=== PATIENT | female | born 1960 | race African-American/Black ===

== ENCOUNTER 2018-03-08 07:16 | Observation (INO) | payer MEDICARE, MEDICAID ==
[~2018-03-08] VITALS: Ht 180.3 cm; Wt 72.3 kg
[2018-03-08] MEDS ORDERED: MORPHINE SULFATE 4 MG/ML CPJ (NOT FOR IM USE) IV STA (07:36)
[2018-03-08] MEDS ORDERED: ASPIRIN 81MG TABLET PO STA (07:36)
[2018-03-08] MEDS ORDERED: ONDANSETRON HCL 4MG/2ML VIAL IV STA (07:36)
[2018-03-08 07:51] LABS: BASOPHILS % 0.4 % (0.0-2.0); EOSINOPHILS % 1.1 % (0.0-5.0); HEMATOCRIT. 35.9 % (36.0-48.0); HEMOGLOBIN. 12.6 g/dL (12.0-16.0); LYMPHOCYTES % 21.8 % (20.0-50.0); MEAN CORPUSCULAR HEMOGLOBIN 31.6 pg (28.0-32.0); MEAN CORPUSCULAR VOLUME 90.3 fL (81.0-99.0); MEAN PLATELET VOLUME 7.3 fl (7.4-10.4); MONOCYTES % 5.4 % (2.0-8.0); NEUTROPHILS % 71.3 % (40.0-76.0); PLATELET 254 x1000/uL (130-400); RED BLOOD CELL COUNT 3.98 mill/uL (4.2-5.4); RED CELL DISTRIBUTION WIDTH 14.5 % (11.6-14.6)
[2018-03-08 07:57] LABS: CHLORIDE 109 mEq/L (98-107)
[2018-03-08 08:01] LABS: D-DIMER 0.19 mg/L FEU (<0.50); PARTIAL THROMBOPLASTIN TIME 26.6 sec (23.4-31.0)
[2018-03-08] MEDS: NITROGLYCERIN 0.4MG TABLET SL SL PRN ×3 (08:06→08:49)
[2018-03-08] MEDS ORDERED: CLONIDINE 0.2MG TABLET PO ONE (09:45)
[2018-03-08] MEDS ORDERED: HYDROCODONE/ACETAMINOPHEN 5/325MG TABLET PO ONE (09:45)
[2018-03-08] MEDS ORDERED: GUAIFENESIN 200MG/10ML SUGAR FREE UDC PO PRN (11:00)
[2018-03-08] MEDS ORDERED: IPRATROPIUM/ALBUTEROL 0.5-3(2.5)MG/3ML NEB INH PRN (11:00)
[2018-03-08] MEDS ORDERED: NA PHOS,M-B/NA PHOS,DI-BA ENEMA 118ML PR PRN (11:00)
[2018-03-08] MEDS ORDERED: DIPHENHYDRAMINE 50MG/ML VIAL IV PRN (11:00)
[2018-03-08] MEDS ORDERED: ACETAMINOPHEN 325MG TABLET PO PRN (11:00)
[2018-03-08] MEDS ORDERED: ONDANSETRON HCL 4MG/2ML VIAL IV PRN (11:00)
[2018-03-08] MEDS ORDERED: MAGNESIUM/ALUMINUM HYDROXIDE/SIMETHICONE 30ML UDC PO PRN (11:00)
[2018-03-08] MEDS ORDERED: MORPHINE SULFATE 2 MG/ML CPJ (NOT FOR IM USE) IV PRN (11:00)
[2018-03-08] MEDS ORDERED: DOCUSATE SODIUM 100MG CAPSULE PO PRN (11:00)
[2018-03-08] MEDS ORDERED: HYDROCODONE/ACETAMINOPHEN 5/325MG TABLET PO PRN (11:00)
[2018-03-08] MEDS ORDERED: ACETAMINOPHEN 650MG SUPP PR PRN (11:00)
[2018-03-08] MEDS ORDERED: CLONIDINE 0.1MG TABLET PO PRN (11:00)
[2018-03-08 12:00] VITALS: BP 128/74
[2018-03-08 12:26] VITALS: BP 128/74
[2018-03-08] MEDS: SODIUM CHLORIDE 0.45% 1,000 ML IV SCH (13:04)
[2018-03-08] MEDS: AMLODIPINE 5MG TABLET PO SCH (13:05)
[2018-03-08] MEDS: MORPHINE SULFATE 4 MG/ML CPJ (NOT FOR IM USE) IV PRN ×3 (13:05→23:18)
[2018-03-08] MEDS: ENOXAPARIN 40MG/0.4ML SYR SUBCUT SCH (13:06)
[2018-03-08] MEDS ORDERED: NICOTINE 14MG PATCH TD SCH (14:15)
[2018-03-08] MEDS ORDERED: LORAZEPAM 2MG/ML CPJ IV PRN (14:15)
[2018-03-08] MEDS: THIAMINE HCL 100MG TABLET PO SCH (14:25)
[2018-03-08] MEDS: FOLIC ACID 1MG TABLET PO SCH (14:25)
[2018-03-08] MEDS: MULTIVITAMINS,THER W-MINERALS TABLET PO SCH (14:25)
[2018-03-08 16:00] VITALS: BP 128/74
[2018-03-08] MEDS ORDERED: CYCLOBENZAPRINE 10MG TABLET PO SCH (16:30)
[2018-03-08 17:59] LABS: CREATINE KINASE 126 IU/L (26-192)
[2018-03-08 18:00] LABS: CREATINE KINASE MB FRACTION 0.8 ng/mL (0.5-3.6)
[2018-03-08 20:36] VITALS: BP 144/94
[2018-03-09] VITALS: BP 137/77
[2018-03-09 04:00] VITALS: BP 134/84
[2018-03-09 06:42] LABS: BASOPHILS % 0.3 % (0.0-2.0); EOSINOPHILS % 1.2 % (0.0-5.0); HEMOGLOBIN. 11.8 g/dL (12.0-16.0); LYMPHOCYTES % 31.2 % (20.0-50.0); MEAN CORPUSCULAR HEMOGLOBIN 31.4 pg (28.0-32.0); MEAN CORPUSCULAR VOLUME 90.8 fL (81.0-99.0); MEAN PLATELET VOLUME 7.8 fl (7.4-10.4); MONOCYTES % 7.5 % (2.0-8.0); NEUTROPHILS % 59.8 % (40.0-76.0); PLATELET 226 x1000/uL (130-400); RED BLOOD CELL COUNT 3.75 mill/uL (4.2-5.4); RED CELL DISTRIBUTION WIDTH 14.2 % (11.6-14.6)
[2018-03-09 06:52] LABS: CHLORIDE 105 mEq/L (98-107)
[2018-03-09 07:04] LABS: HDL CHOLESTEROL 70 mg/dL (40-59); T4 FREE 0.81 ng/dL (0.76-1.46)
[2018-03-09 07:05] LABS: LDL CHOLESTEROL 66 mg/dL (5-100)
[2018-03-09 08:12] VITALS: BP 122/68
[2018-03-09] MEDS: MULTIVITAMINS,THER W-MINERALS TABLET PO SCH (08:21)
[2018-03-09] MEDS: AMLODIPINE 5MG TABLET PO SCH (08:21)
[2018-03-09] MEDS: CYCLOBENZAPRINE 10MG TABLET PO PRN ×2 (08:21→16:47)
[2018-03-09] MEDS: THIAMINE HCL 100MG TABLET PO SCH (08:21)
[2018-03-09] MEDS: FOLIC ACID 1MG TABLET PO SCH (08:21)
[2018-03-09] MEDS: SODIUM CHLORIDE 0.45% 1,000 ML IV SCH ×2 (08:22→14:57)
[2018-03-09] MEDS ORDERED: NICOTINE 14MG PATCH TD SCH (09:00)
[2018-03-09] MEDS ORDERED: ASPIRIN 81MG EC TABLET PO SCH (09:00)
[2018-03-09 12:13] VITALS: BP 131/85
[2018-03-09] MEDS: ENOXAPARIN 40MG/0.4ML SYR SUBCUT SCH (13:53)
[2018-03-09 16:00] VITALS: BP 123/77
[2018-03-09 16:13] VITALS: BP 123/77
== END 2018-03-09 17:20 | disposition home or self-care (01) ==
LOC: ER 08:09 → INTOOBSV 09:20 → 6WST 09:20 → EDBEDREQ 09:23 → SUPCPDRO 10:51 → ENRESERV 10:55
PROVIDERS: ADMIT Internal Medicine; ATTEND Internal Medicine
DX: R07.89 Other chest pain (principal); M47.892 Other spondylosis, cervical region; F17.210 Nicotine dependence, cigarettes, uncomplicated; F10.20 Alcohol dependence, uncomplicated; G43.909 Migraine, unspecified, not intractable, without status migrainosus; I10 Essential (primary) hypertension; D57.1 Sickle-cell disease without crisis
CPT/HCPCS: 36415; 71045; 72040; 80053; 80061; 82550; 82553; 83880; 84439; 84443; 84484; 85025; 85044; 85379; 85610; 85730; 93005; 93306; 96361; 96372; 96374; 96375; 96376; 99285; G0378; J1650; J2270; J2405

== ENCOUNTER 2019-09-09 09:40 | Emergency (ER) | payer MEDICARE, MEDICAID ==
[~2019-09-09] VITALS: Ht 180.3 cm; Wt 80.0 kg
[2019-09-09] MEDS ORDERED: IBUPROFEN 600MG TABLET PO ONE (10:45)
[2019-09-09 11:37] VITALS: BP 129/78
== END 2019-09-09 11:38 | disposition home or self-care (01) ==
LOC: ER 09:40
DX: J06.9 Acute upper respiratory infection, unspecified (principal); I10 Essential (primary) hypertension; G43.909 Migraine, unspecified, not intractable, without status migrainosus; F17.210 Nicotine dependence, cigarettes, uncomplicated; Z88.0 Allergy status to penicillin
CPT/HCPCS: 99282

== ENCOUNTER 2019-09-23 16:15 | Emergency (ER) | payer OTHER, MEDICAID ==
[~2019-09-23] VITALS: Ht 180.3 cm; Wt 79.0 kg
[2019-09-23 21:23] VITALS: BP 129/91
== END 2019-09-23 21:36 | disposition home or self-care (01) ==
LOC: ER 16:15
DX: Q89.2 Congenital malformations of other endocrine glands (principal)
CPT/HCPCS: 70490; 99284